=== PATIENT | female | born 1975 ===

== ENCOUNTER 2018-03-03 10:30 | Inpatient (IN) | payer OTHER ==
[~2018-03-03] VITALS: Ht 154.9 cm; Wt 71.2 kg
[2018-03-28] MEDS ORDERED: PRENATAL TABLE1 EACH PO (11:39)
== END 2018-03-30 11:32 | DRG 767 ==
LOC: LDR 10:30 → OB/GYN 03-28 10:39 → LDR 03-28 10:51 → OB/GYN 03-28 14:29 → LDR 04-06 10:30
PROC: 10E0XZZ Delivery of Products of Conception, External Approach (ICD-10-PCS; principal; 2018-03-28)
PROC: 0HQ9XZZ Repair Perineum Skin, External Approach (ICD-10-PCS; 2018-03-28)
PROC: 4A1HXCZ Monitoring of Products of Conception, Cardiac Rate, External Approach (ICD-10-PCS; 2018-03-28)
PROC: 0UL70ZZ Occlusion of Bilateral Fallopian Tubes, Open Approach (ICD-10-PCS; 2018-03-29)
DX: O70.0 First degree perineal laceration during delivery (principal); Z37.0 Single live birth; Z3A.39 39 weeks gestation of pregnancy; Z30.2 Encounter for sterilization; O09.523 Supervision of elderly multigravida, third trimester

== ENCOUNTER 2018-03-24 19:33 | Outpatient (CLI) | payer OTHER | END 2018-03-25 08:37 | disposition home or self-care (01) | LOC: OBS/DEL 19:33 | DX: O47.1 False labor at or after 37 completed weeks of gestation (principal); Z34.03 Encounter for supervision of normal first pregnancy, third trimester ==